=== PATIENT | male | born 1990 | race Two or more races ===

== ENCOUNTER 2016-08-10 21:10 | Emergency (ER) | payer SELFPAY ==
[~2016-08-10] VITALS: Ht 170.2 cm; Wt 63.5 kg
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
[2016-08-10] MEDS ORDERED: IV NS 0.9% 1,000 ML BAG IV ONE ×2 (21:30→22:30)
--- NOTE | 2016-08-10 21:34 | NUR ---
IV LINE STARTED BLOOD DRAWN AND SENT TO LAB.
[2016-08-10 21:40] LABS: BASOPHILS # (AUTO) 0.2 /CMM (0.0-0.2); BASOPHILS % (AUTO) 1.6 % (0.0-2.0); EOSINOPHILS % (AUTO) 0.4 % (0.0-6.0); HEMATOCRIT 47 % (39-51); HEMOGLOBIN 15.4 g/dL (13.5-17.5); LYMPHOCYTES # (AUTO) 1.8 /CMM (0.8-4.8); LYMPHOCYTES % (AUTO) 15.8 % (20.0-44.0); MEAN CORPUSCULAR HEMOGLOBIN 26 PG (26.0-33.0); MEAN CORPUSCULAR HGB CONC 33 g/dl (31.0-36.0); MEAN CORPUSCULAR VOLUME 80 fL (80-96); MONOCYTES # (AUTO) 0.8 /CMM (0.1-1.30); MONOCYTES % (AUTO) 7.4 % (2.0-12.0); NEUTROPHILS # (AUTO) 8.6 /CMM (1.8-8.9); NEUTROPHILS % (AUTO) 74.8 % (43.0-81.0); PLATELET COUNT (AUTO) 380 /CMM (150-450); RDW COEFFICIENT OF VARIATION 16.3 (11.5-15.0); RED BLOOD CELL COUNT(AUTO) 5.84 MIL/uL (4.5-6.0); WHITE BLOOD COUNT (AUTO) 11.4 K/uL (4.3-11.0)
[2016-08-10] MEDS ORDERED: HALOPERIDOL LACTATE INJ 5 MG/ML VIAL ONE ×2 (21:41→21:54)
[2016-08-10] MEDS ORDERED: IV SET PRIMARY 1 EA INFUS.SET MC ONE ×2 (21:41→22:09)
[2016-08-10] MEDS ORDERED: IV NS 0.9% 1,000 ML ONE ×2 (21:41→22:09)
--- NOTE | 2016-08-10 21:53 | NUR ---
PT TOO COMBATIVE FOR CT SCAN & CXR, ER WILL CALL WHEN READY.
[2016-08-10] MEDS ORDERED: diphenhydrAMINE HCL 50 MG/ML VIAL ONE (21:54)
[2016-08-10] MEDS ORDERED: LORAZEPAM INJ 2 MG/ML VIAL ONE ×2 (21:55→23:44)
[2016-08-10] MEDS ORDERED: HALOPERIDOL LACTATE INJ 5 MG/ML VIAL IV ONE ×2 (22:00→22:30)
[2016-08-10 22:02] LABS: INR 1.03 (0.87-1.13)
--- NOTE | 2016-08-10 22:04 | NUR ---
DR GRAHAM AT BEDSIDE FOR EVAL.
[2016-08-10 22:05] LABS: CANNABINOID, URINE NEGATIVE (NEGATIVE); PHENCYCLIDINE SCREEN,URINE NEGATIVE (NEGATIVE)
[2016-08-10 22:09] LABS: CARBON DIOXIDE 24 mmol/L (21-32); CHLORIDE 103 mmol/L (98-107); CREATININE 1.3 mg/dL (0.6-1.3); GFR 66 mL/min (>60); GLUCOSE 105 mg/dL (74-106); POTASSIUM 3.9 mmol/L (3.5-5.1); SODIUM SERUM 144 mmol/L (136-145); TROPONIN I < 0.017 ng/mL (0.00-0.056); UREA NITROGEN, BLOOD 26 mg/dL (7-18)
[2016-08-10 22:16] LABS: ALANINE AMINOTRANSFERASE 178 U/L (12-78); ALBUMIN 4.2 g/dL (3.4-5.0); ALKALINE PHOSPHATASE 99 U/L (46-116); ASPARTATE AMINOTRANSFERASE 62 U/L (15-37); BILIRUBIN,DIRECT 0.1 mg/dL (0.0-0.2); BILIRUBIN,TOTAL 0.6 mg/dL (0.2-1.0)
[2016-08-10 22:17] LABS: SALICYLATE 1.7 mg/dL (2.8-20.0)
[2016-08-10 22:18] LABS: ACETAMINOPHEN 0 ug/ml (10-30); ALCOHOL, BLOOD < 3 mg/dL (0-0)
[2016-08-10] MEDS ORDERED: diphenhydrAMINE HCL 50 MG/ML VIAL IV ONE (22:30)
[2016-08-10] MEDS ORDERED: LORAZEPAM INJ 2 MG/ML VIAL IV ONE (22:30)
--- NOTE | 2016-08-10 22:46 | NUR ---
PT TRANSFERED TO BED 8. SLEEPING. ON MONITOR W/ STABLE VITALS.
[2016-08-11] MEDS ORDERED: LORAZEPAM INJ 2 MG/ML VIAL IV ONE
--- NOTE | 2016-08-11 00:02 | NUR ---
PT TO CT VIA SNEHAL
--- NOTE | 2016-08-11 02:00 | NUR ---
PT RESTING COMFORTABLY ON BED. AWAKENS TO NAME AN GENTLE TOUCH. VSS, NAD NOTED. DENIES COMPLAINT. RETURNS TO SLEEP.
--- NOTE | 2016-08-11 07:00 | NUR ---
Patient is resting comfortably in bed with eyes closed. Easily aroused. VSS
--- NOTE | 2016-08-11 09:00 | NUR ---
Patient is resting comfortably in bed with eyes closed. Easily aroused. VSS
--- NOTE | 2016-08-11 11:00 | NUR ---
ASSUME PT CARE. RESTING COMFORTABLY. EASILY AROUSABLE. CALM. VSS. WILL CONT TO MONITOR.
--- NOTE | 2016-08-11 12:05 | NUR ---
PT PROVIDED W/ FOOD TRAY. AAOX3, AMBULATORY W/ STEADY GAIT. WANT TO LEAVE THE ED STATING HE IS GOING TO HIS SISTERS PLACE. MEDICALLY CLEARED. IVHL DISCONTINUED. PT D/C IN STABLE CONDITION.
[2016-08-11 12:09] VITALS: BP 121/66
== END 2016-08-11 12:10 | disposition home or self-care (01) ==
LOC: ER 21:12
DX: R41.82 Altered mental status, unspecified (principal); R79.1 Abnormal coagulation profile; R79.89 Other specified abnormal findings of blood chemistry
CPT/HCPCS: 36415; 70450-TC; 71010-TC; 80048-TC; 80076-TC; 80305; 82550-TC; 82962-TC; 84484-TC; 85025-TC; 85730-TC; A4606; G0480; G6039-TC; J1200; J1630; J2060; J7030; Z7610